=== PATIENT | male | born 1960 | race Caucasian/White ===

== ENCOUNTER → 2017-02-24 | Outpatient (CLI) | payer OTHER ==
[~2017-02-24] MED LIST: AUGMENTIN 875-1 EACH PO; FLOMAX 0.4MG C0.4 MG PO; KEFLEX 500MG.500 MG PO; LIPITOR10 MG PO; METOPROLOL 25 M25 MG PO; MOTRIN 600MG.600 MG PO; NORCO 325 MG-51 TAB PO; PERCOCET 10 MG1 EACH PO; PERCOCET 5/3251 EACH PO; PHENERGAN 25MG.25 M1 PO; PREDNISONE 20MG20 MG PO
[2017-02-24 11:25] LABS: BUN 16 mg/dL (7-18)
[2017-02-24 11:42] LABS: GFR (ESTIMATED) 77 ML/MIN (>60)
== END ==
LOC: LAB 08:14
PROVIDERS: Internal Medicine Adolescent Medicine
DX: E78.5 Hyperlipidemia, unspecified (principal)